=== PATIENT | female | born 1975 | race African-American/Black ===

== ENCOUNTER 2024-07-24 18:45 | Emergency (ER) | payer OTHER ==
[~2024-07-24] VITALS: Ht 162.6 cm; Wt 100.0 kg
[2024-07-24 18:50] VITALS: O2SAT 100
[2024-07-24 19:53] LABS: EOSINOPHILS % 9.9 % (0.0-5.0); HEMATOCRIT. 37.8 % (36.0-48.0); HEMOGLOBIN. 12.6 g/dL (12.0-16.0); MEAN CORPUSCULAR HGB CONC 33.4 g/dL (31.0-37.0); MEAN CORPUSCULAR VOLUME 86.8 fL (81.0-99.0); MONOCYTES % 9.2 % (2.0-8.0); NEUTROPHILS % 46.9 % (40.0-76.0); PLATELET 197 x1000/uL (130-400); RED BLOOD CELL COUNT 4.36 mill/uL (4.2-5.4); RED CELL DISTRIBUTION WIDTH 17.7 % (11.6-14.6); WHITE BLOOD COUNT 3.7 x1000/uL (4.5-11.0)
[2024-07-24 19:59] LABS: CHLORIDE 106 mEq/L (98-107); POTASSIUM 4.2 mEq/L (3.5-5.1); SODIUM 138 mEq/L (136-145)
[2024-07-24 20:00] LABS: CALCIUM 9.3 mg/dL (8.7-10.4); CARBON DIOXIDE 26 mEq/L (21-32)
[2024-07-24 20:02] LABS: HCG SCREEN NEGATIVE
[2024-07-24 20:05] LABS: CREATININE 0.9 mg/dL (0.6-1.0); GLUCOSE 95 mg/dL (70-105); UREA NITROGEN BLOOD 15 mg/dL (9-23)
[2024-07-24 20:06] LABS: TROPONIN I HIGH SENSITIVITY 16 ng/L (3.0-34)
[2024-07-24 23:04] LABS: TROPONIN I HIGH SENSITIVITY 16 ng/L (3.0-34)
[2024-07-24 23:47] VITALS: BP 138/84; PULSE 62; RESP 18; TEMP 36.83628; O2SAT 100
== END 2024-07-24 23:47 | disposition home or self-care (01) ==
LOC: ER 18:45
DX: R55 Syncope and collapse (principal); E11.9 Type 2 diabetes mellitus without complications; I10 Essential (primary) hypertension
CPT/HCPCS: 80048; 81025; 84703; 85025; 84484; 36415; 71045; 93970; 93005; 99285; Z7610 ×2